=== PATIENT | male | born 1965 | race Caucasian/White ===

== ENCOUNTER → 2016-12-27 | Day surgery (SDC) | payer OTHER ==
[~2016-12-27] VITALS: Ht 170.2 cm; Wt 109.1 kg
[2016-12-27 07:16] LABS: HCT 43.1 % (42.0-52.0); HGB 14.6 g/dl (13.2-18.0); MCH 31.5 pg (25.0-31.0); MCHC 33.9 g/dL (32.0-36.0); MCV 92.9 fL (78.0-100.0); MPV 9.2 fL (6.0-9.5); RBC 4.64 M/uL (4.70-6.00); RDW 13.9 % (11.5-14.0); WBC 12.3 K/uL (4.0-10.5)
[2016-12-27 07:32] LABS: ALBUMIN 4.2 g/dL (3.5-5.0); BILIRUBIN - TOTAL 0.3 mg/dL (0.1-1.0); CREATININE 0.8 mg/dL (0.7-1.2); GLOBULIN (CALCULATION) 2.5 g/dL (2.2-4.2); TOTAL PROTEIN 6.7 g/dL (6.4-8.3)
== END | disposition home or self-care (01) ==
LOC: FAS 06:39
PROVIDERS: Orthopaedic Surgery
DX: S83.231A Complex tear of medial meniscus, current injury, right knee, initial encounter (principal); M79.4 Hypertrophy of (infrapatellar) fat pad; M25.861 Other specified joint disorders, right knee; M67.51 Plica syndrome, right knee; M17.11 Unilateral primary osteoarthritis, right knee; I10 Essential (primary) hypertension; J44.9 Chronic obstructive pulmonary disease, unspecified; F17.210 Nicotine dependence, cigarettes, uncomplicated; N40.0 Benign prostatic hyperplasia without lower urinary tract symptoms; Z88.3 Allergy status to other anti-infective agents
CPT/HCPCS: 36415; 71010; 80053; 93005; J1170; J2405; J2704; J3010